=== PATIENT | female | born 1975 | race Caucasian/White ===

== ENCOUNTER 2017-03-17 23:36 | Emergency (ER) | payer SELFPAY ==
[2017-03-17 23:56] VITALS: BP 121/82
== END 2017-03-18 00:18 | disposition left against medical advice (07) ==
LOC: DL.ED 23:36
DX: Z53.21 Procedure and treatment not carried out due to patient leaving prior to being seen by health care provider (principal)

== ENCOUNTER 2018-06-17 12:18 | Emergency (ER) | payer BC ==
[2018-06-17] MEDS ORDERED: Silver Nitrate Applicator Each ONE ×2 (12:56→12:57)
[2018-06-17 12:58] LABS: CHLORIDE,CL 105 mmol/L (101-111); SODIUM,NA 139 mmol/L (135-145)
[2018-06-17 12:59] LABS: ANION GAP 16.3
[2018-06-17] MEDS ORDERED: Ferric Subsulfate Topical Soln 8 GM (8 ML) Bottle TOP ONE (13:04)
[2018-06-17] MEDS ORDERED: Ferric Subsulfate Topical Soln 8 GM (8 ML) Bottle ONE (13:08)
[2018-06-17 13:16] VITALS: BP 117/87
--- NOTE | 2018-06-17 13:55 | EDM.PDOC ---
ED HPI GENERAL MEDICAL PROBLEM - General Chief Complaint: [employer] Problem Stated Complaint: BLEEDING,HYSTERECTOMY Time Seen by Provider: 06/17/18 13:15 Source of Information: Reports: Patient, RN, RN Notes Reviewed History Limitations: Reports: No Limitations - History of Present Illness INITIAL COMMENTS - FREE TEXT/NARRATIVE: Pt to ER with c/o vaginal bleeding after hysterectomy on 06/06/18. She states she has not had any abdominal pain or cramping, denies fever or chills. She states she was on the couch and had a large gush of blood which continued on her way to the hospital, as she has blood running down the inside of her legs, blood in her shoes. Onset: Today, Sudden Uterine Pain Score (Numeric/FACES): 4 - Related Data Allergies Allergy/AdvReac Type Severity Reaction Status Date / Time No Known Allergies Allergy Verified 06/17/18 13:12 Home Meds: Home Meds ALPRAZolam [Xanax] 0.25 mg PO QID PRN 06/17/18 [History] traZODone HCl [Trazodone HCl] 50 mg PO DAILY 06/17/18 [History] Past Medical History HEENT History: Reports: None Cardiovascular History: Reports: None Respiratory History: Reports: None Gastrointestinal History: Reports: Chronic Diarrhea, Hepatitis Genitourinary History: Reports: None [employer] History: Reports: Ectopic , Other (See Below) Other [employer] History: hysterectomy Musculoskeletal History: Reports: None Neurological History: Reports: None Psychiatric History: Reports: Addiction, Anxiety Other Psychiatric History: TOBACCO, ALCOHOL Endocrine/Metabolic History: Reports: None Hematologic History: Reports: None Immunologic History: Reports: Other (See Below) Other Immunologic History: Hepatitis C Oncologic (Cancer) History: Reports: None Dermatologic History: Reports: None - Infectious Disease History Infectious Disease History: Reports: Chicken Pox, Measles, Mumps - Past Surgical History Head Surgeries/Procedures: Reports: None Female Surgical History: Reports: Tubal Ligation Social & Family History - Family History Family Medical History: Noncontributory - Tobacco Use Smoking Status *Q: Current Every Day Smoker Years of Tobacco use: 30 Packs/Tins Daily: 0.2 Used Tobacco, but Quit: No - Caffeine Use Caffeine Use: Reports: None - Recreational Drug Use Recreational Drug Use: No ED ROS GENERAL - Review of Systems Review Of Systems: ROS reveals no pertinent complaints other than HPI. ED EXAM, GENERAL - Physical Exam Exam: See Below Exam Limited By: No Limitations General Appearance: Alert, WD/WN, Anxious Eye Exam: Bilateral Eye: EOMI, Normal Inspection Ears: Normal External Exam, Hearing Grossly Normal Nose: Normal Inspection Throat/Mouth: Normal Inspection, Normal Voice, No Airway Compromise Head: Atraumatic, Normocephalic Neck: Normal Inspection, Full Range of Motion Respiratory/Chest: No Respiratory Distress, Lungs Clear, Normal Breath Sounds, No Accessory Muscle Use, Chest Non-Tender Cardiovascular: Normal Peripheral Pulses, Regular Rate, Rhythm, No Edema, No Gallop, No JVD, No Murmur, No Rub GI/Abdominal: Normal Bowel Sounds, Soft, Non-Tender (Female) Exam: Other (Performed by Dr. Rodriguez) Rectal (Female) Exam: Deferred Back Exam: Normal Inspection, Full Range of Motion, NT Extremities: Normal Inspection, Normal Range of Motion, Non-Tender, Normal Capillary Refill, No Pedal Edema Neurological: Alert, Oriented, CN II-XII Intact, Normal Cognition, Normal Gait, Normal Reflexes, No Motor/Sensory Deficits Psychiatric: Normal Mood, Anxious Skin Exam: Warm, Dry, Intact, Normal Color, No Rash Lymphatic: No Adenopathy Course - Vital Signs Last Recorded V/S: Last Vital Signs Temp 99.0 F 06/17/18 13:15 Pulse 101 H 06/17/18 13:15 Resp 20 06/17/18 13:15 BP 117/87 06/17/18 13:15 Pulse Ox 98 06/17/18 13:15 - Orders/Labs/Meds Labs: Laboratory Tests 06/17/18 06/17/18 Range/Units 12:31 12:31 WBC 10.0 (5.0-10.0) 10^3/uL RBC 4.53 (4.2-5.4) 10^6/uL Hgb 15.3 (12.0-16.0) g/dL Hct 45.9 (37.0-47.0) % MCV 101.3 H (80-100) fL MCH 33.8 (27.0-34.0) pg MCHC 33.3 (33.0-35.0) g/dL Plt Count 465 H D (150-450) 10^3/uL Neut % (Auto) 54.4 (42.2-75.2) % Lymph % (Auto) 33.8 (20.5-50.1) % [place] % (Auto) 5.9 (2-8) % Eos % (Auto) 5.5 H (1.0-3.0) % Baso % (Auto) 0.4 (0.0-1.0) % Sodium 139 (135-145) mmol/L Potassium 4.3 (3.6-5.0) mmol/L Chloride 105 (101-111) mmol/L Carbon Dioxide 22.0 (21.0-31.0) mmol/L Anion Gap 16.3 BUN 9 (7-18) mg/dL Creatinine 0.7 (0.6-1.3) mg/dL Est Cr Clr Drug Dosing TNP Estimated GFR (MDRD) > 60 BUN/Creatinine Ratio 12.85 Glucose 103 (74-105) mg/dL Calcium 8.7 (8.4-10.2) mg/dl Total Bilirubin 0.4 (0.2-1.0) mg/dL AST 50 H (10-42) IU/L ALT 57 (10-60) IU/L Alkaline Phosphatase 87 (42-121) IU/L Total Protein 7.7 (6.7-8.2) g/dl Albumin 4.0 (3.2-5.5) g/dl Globulin 3.7 Albumin/Globulin Ratio 1.08 Meds: Medications Discontinued Medications Generic Name Dose Route Start Last Admin Trade Name Freq PRN Reason Stop Dose Admin Ferric Subsulfate 1 gm 06/17/18 13:04 06/17/18 13:06 Astringyn TOP 06/17/18 13:05 1 applic ONETIME ONE Administration Ferric Subsulfate Confirm 06/17/18 13:08 Astringyn Administered 06/17/18 13:09 Dose 8 gm .ROUTE .STK-MED ONE Silver Nitrate Confirm 06/17/18 12:56 06/17/18 13:04 Silver Nitrate Administered 06/17/18 12:57 Not Given Dose 2 each .ROUTE .STK-MED ONE Silver Nitrate Confirm 06/17/18 12:57 06/17/18 13:04 Silver Nitrate Administered 06/17/18 12:58 Not Given Dose 1 each .ROUTE .STK-MED ONE - Re-Assessments/Exams Free Text/Narrative Re-Assessment/Exam: 06/19/18 10:35 Dr. Rodriguez consulted to see the patient. He came to the ER, saw the patient, performed a vaginal exam. He states the cuff is intact. Asks that the patient be monitored for 1 hour and she may be discharged home to follow up with her OB/ [employer]. Patient states understanding. Departure - Departure Time of Disposition: 13:51 Disposition: Home, Self-Care 01 Condition: Fair Clinical Impression: Status post hysterectomy, Excessive vaginal bleeding - Discharge Information *PRESCRIPTION DRUG MONITORING PROGRAM REVIEWED*: No *COPY OF PRESCRIPTION DRUG MONITORING REPORT IN PATIENT AROLDO: No Instructions: Hysterectomy Information, [id number] Referrals: Constance Hutchison NP [Primary Care Provider] - Forms: ED Department Discharge Additional Instructions: No lifting Rest Follow up with your [employer] Drink plenty of water
--- NOTE | 2018-06-17 20:13 | PN ---
DATE: 06/17/2018 The patient was seen on 06/17/2018, at [facility]. SUBJECTIVE: The patient is a 42-year-old female, who had performed a total laparoscopic hysterectomy on 06/06/2018. Therefore, would be postop day #11, was called by the ER provider because she did have a large gush of vaginal bleeding. The patient states she had some spotting yesterday and then a large gush today. Really, no pain, no fevers or chills. Dr. Helms did remove the Prolene sutures last week. OBJECTIVE: The patient on physical exam: Vital Signs: She is afebrile, heart rate 99 to 101, blood pressure 117 to 118 systolic over 66 to 87 diastolic, respiratory rate 16 to 20. O2 saturation 90% to 99%. General: The patient is alert and oriented x4, in no acute distress. She is shook up by this episode of bleeding. She does have blood on her legs. The external genitalia, vagina, and cuff were all examined. I did need to clear some of the blood clot out of the vagina; however, the cuff was visualized, intact. No sign of infection. No active bleeding from the cuff, but I did place some Monsel's solution to avoid any further bleeding. Bimanual exam, I could palpate nothing in the pelvis, no bleeding. LABORATORY DATA: Hemoglobin was 15.3, white count 10, and the chem-20 was normal which is all reassuring. ASSESSMENT AND PLAN: Postoperative day 11, status post total laparoscopic hysterectomy with acute episode of vaginal bleeding. The cuff is intact. There seems to be no further bleeding from the cuff. I did place Monsel's solution. The patient is hemodynamically stable. Hemoglobin is good and she was reassured that all bleeding seems to have stopped. She will call if there is any further bleeding. Otherwise, she already does have a postoperative exam with me, she will continue pelvic rest. [facility] /[id number] KRISTOFER
== END 2018-06-17 14:03 | disposition home or self-care (01) ==
LOC: DL.ED 12:18
DX: N93.9 Abnormal uterine and vaginal bleeding, unspecified (principal); Z90.710 Acquired absence of both cervix and uterus; F41.9 Anxiety disorder, unspecified; F17.210 Nicotine dependence, cigarettes, uncomplicated; Z98.51 Tubal ligation status
CPT/HCPCS: 36415; 80053; 85025; 99284

== ENCOUNTER 2019-05-28 19:00 | Emergency (ER) | payer SELFPAY ==
[2019-05-28 19:25] VITALS: BP 129/105; PULSE 119
== END 2019-05-28 20:05 | disposition left against medical advice (07) ==
LOC: DL.ED 19:00
DX: Z53.21 Procedure and treatment not carried out due to patient leaving prior to being seen by health care provider (principal)